=== PATIENT | female | born 1990 | race Caucasian/White ===

== ENCOUNTER → 2018-04-23 | Outpatient (CLI) | payer MEDICAID ==
[~2018-04-23] MED LIST: FRS325T PO; PREN1TAB39 PO
--- NOTE | 2018-04-23 17:03 | Diagnostic Imaging Report ---
PROCEDURE: US OB single fetus <14 wks. TECHNIQUE: Multiple real-time grayscale images were obtained over the gravid uterus in various projections. INDICATION: Gestational age determination. FINDINGS: There is a single living intrauterine . Embryo crown-rump length is 1.9 cm which corresponds to a gestational age of 8 weeks and 4 days. heart beat was recorded at 172 beats per minute. The placenta appears to be forming anteriorly. Amniotic fluid volume appears normal. Neither ovary could be adequately located because of overlying bowel gas. IMPRESSION: Single living intrauterine estimated with gestational age of 8 weeks 4 days +/-6 days. Dictated by: Dictated on workstation # [id number]
== END ==
LOC: RAD 13:45
PROVIDERS: ATTEND Family Medicine
DX: Z34.81 Encounter for supervision of other normal pregnancy, first trimester (principal); Z3A.08 8 weeks gestation of pregnancy
CPT/HCPCS: 76801

== ENCOUNTER 2018-11-17 08:25 | Outpatient (CLI) | payer MEDICAID ==
[~2018-11-17] VITALS: Ht 165.1 cm; Wt 85.0 kg
[2018-11-17] MEDS ORDERED: PREN-8 PO (08:38)
[2018-11-17 08:39] VITALS: BP 126/80
== END 2018-11-17 10:59 | disposition home or self-care (01) ==
LOC: PREOP 08:25
PROVIDERS: ATTEND Obstetrics & Gynecology
DX: Z01.818 Encounter for other preprocedural examination (principal)
CPT/HCPCS: 87081

== ENCOUNTER 2018-11-23 06:00 | Inpatient (IN) | payer MEDICAID ==
[~2018-11-23] VITALS: Ht 165.1 cm; Wt 85.0 kg
[~2018-11-23 06:00] MED LIST changes: +CITRIC ACID/SOB CIT (BICITRA) 30 ML UDC ONE; +FAMOTIDINE 20MG/2ML IV (PEPCID) ONE; +LACTATED RINGERS 1,000 ML IV ONE; +METOCLOPRAMIDE INJ 10 MG/2 ML (REGLAN) ONE; +PREN-8 PO; +ceFAZolin 2 GM IV Premixed 50 ML ONE
[2018-11-23] MEDS ORDERED: ceFAZolin 2 GM IV Premixed 50 ML IV ONE ×2 (06:30→07:30)
--- OUTSIDE RECORDS SUMMARY | 2018-11-23 06:30 | XMS REPORT ---
Author Author DHARMESH MILIAN Organization [facility] Address [address] [place] [address] Care Team Providers Care Flat Polisher Name Role Phone DHARMESH MILIAN Unavailable PROBLEMS Type Condition ICD9-CM Code [id number] Code Onset Dates Condition Status SNOMED Code Problem Previous section complicating O34.219 Active 193122050 ALLERGIES No Information ENCOUNTERS Encounter Location Date Diagnosis [facility] [address], [place] [address] May, [facility] [address], [place] [address] Apr, Normal in multigravida Z34.80 ; care in first trimester Z34.91 ; 6 weeks gestation of Z3A.01 and Previous section complicating O34.219 [facility] [address] [address] Apr, [facility] [address], [place] [address] Mar, [facility] [address], [place] [address] Mar, Encounter for test, result unknown Z32.00 IMMUNIZATIONS No Known Immunizations SOCIAL HISTORY Never Assessed REASON FOR VISIT Waiting for call back PLAN OF CARE VITAL SIGNS MEDICATIONS Unknown Medications RESULTS No Results PROCEDURES No Known procedures INSTRUCTIONS MEDICATIONS ADMINISTERED No Known Medications MEDICAL (GENERAL) HISTORY Type Description Date Surgical History 2 c - sections Hospitalization History child
--- OUTSIDE RECORDS SUMMARY | 2018-11-23 06:30 | XMS REPORT ---
Author Author SAL PRESTON Organization [facility] Address [address] [place] [address] Care Team Providers Care Watch Inspector Name Role Phone SAL PRESTON Unavailable PROBLEMS Type Condition ICD9-CM Code HWD12-AY Code Onset Dates Condition Status SNOMED Code Problem Previous section complicating O34.219 Active 572601060 ALLERGIES No Known Allergies ENCOUNTERS Encounter Location Date Diagnosis [facility] [address] [address] May, [facility] [address] [address] 10 Apr, 2018 Normal in multigravida Z34.80 ; care in first trimester Z34.91 ; 6 weeks gestation of Z3A.01 and Previous section complicating O34.219 [facility] [address] [address] Apr, [facility] [address] [address] Mar, [facility] [address] [address] Mar, Encounter for test, result unknown Z32.00 IMMUNIZATIONS No Known Immunizations SOCIAL HISTORY Never Assessed REASON FOR VISIT OB Flowsheet History PLAN OF CARE VITAL SIGNS MEDICATIONS Unknown Medications RESULTS No Results PROCEDURES No Known procedures INSTRUCTIONS MEDICATIONS ADMINISTERED No Known Medications MEDICAL (GENERAL) HISTORY Type Description Date Surgical History 2 c - sections Hospitalization History child
--- OUTSIDE RECORDS SUMMARY | 2018-11-23 06:30 | XMS REPORT ---
Author Author SAL PRESTON Organization [facility] Address [address] [place] [address] Care Team Providers Care Wet Suit Gluer Name Role Phone SAL PRESTON Unavailable PROBLEMS Type Condition ICD9-CM Code VIQ51-VN Code Onset Dates Condition Status SNOMED Code Problem Previous section complicating O34.219 Active 325478425 ALLERGIES No Information ENCOUNTERS Encounter Location Date Diagnosis [facility] [address] [place] [address] May, [facility] [address] [address] 10 Apr, 2018 Normal in multigravida Z34.80 ; care in first trimester Z34.91 ; 6 weeks gestation of Z3A.01 and Previous section complicating O34.219 [facility] [address] [address] Apr, [facility] [address] [address] Mar, [facility] [address] [address] Mar, Encounter for test, result unknown Z32.00 IMMUNIZATIONS No Known Immunizations SOCIAL HISTORY Never Assessed REASON FOR VISIT test (walk-in) PLAN OF CARE VITAL SIGNS MEDICATIONS Unknown Medications RESULTS Name Result Date Reference Range TEST, URINE (IN HOUSE) 2018-03-31 RESULTS Positive Lot # [id number] Control + Exp date 08/2019 PROCEDURES Procedure Date Ordered Result Body Site URINE TEST Mar 31, 2018 INSTRUCTIONS MEDICATIONS ADMINISTERED No Known Medications MEDICAL (GENERAL) HISTORY Type Description Date Surgical History 2 c - sections Hospitalization History child
--- OUTSIDE RECORDS SUMMARY | 2018-11-23 06:30 | XMS REPORT ---
Author Author DHARMESH MILIAN Organization [facility] Address [address] [place] [address] Care Team Providers Care Medicine Teacher Name Role Phone DHARMESH MILIAN Unavailable PROBLEMS Type Condition ICD9-CM Code NPC95-RK Code Onset Dates Condition Status SNOMED Code Problem Previous section complicating O34.219 Active 789183659 ALLERGIES Substance Reaction Event Type Date Status Percocet rash Drug Allergy Apr, Active ENCOUNTERS Encounter Location Date Diagnosis [facility] [address], [place] [address] May, [facility] [address] [place] [address] Apr, Normal in multigravida Z34.80 ; care in first trimester Z34.91 ; 6 weeks gestation of Z3A.01 and Previous section complicating O34.219 [facility] [address] [address] Apr, [facility] [address], [place] [address] Mar, [facility] [address] [place] [address] Mar, Encounter for test, result unknown Z32.00 IMMUNIZATIONS No Known Immunizations SOCIAL HISTORY Never Assessed REASON FOR VISIT OB-intake -- nori aden PLAN OF CARE Activity Details Follow Up 4 Weeks Reason: Pending Test GC/CHLAM PROBE (STATE) Pending Test SYPHILIS (STATE) Pending Test HIV (STATE) Pending Test HEP B SURFACE ANTIGEN (STATE) Pending Test CBC Pending Test BLOOD TPYE/RH FACTOR Pending Test ANTIBODY SCREEN Pending Test TSH Pending Test RUBELLA IMMUNE STATUS Pending Test CULTURE, GENITAL VITAL SIGNS Height 5'6" in 2018-04-13 Weight 156.0 lbs 2018-04-13 Temperature 98.0 degrees Fahrenheit 2018-04-13 BMI 25.18 kg/m2 2018-04-13 Blood pressure systolic 118 mmHg 2018-04-13 Blood pressure diastolic 70 mmHg 2018-04-13 MEDICATIONS Medication Instructions Dosage Frequency Start Date End Date Duration Status 28-0.8 MG Orally daily 1 24h Apr, Active Vitamins - (Dis) as directed Active 28-0.8 MG Orally daily 1 24h Apr, Active RESULTS No Results PROCEDURES Procedure Date Ordered Result Body Site URINALYSIS, AUTO, W/O SCOPE Apr 13, 2018 [facility] Apr 13, 2018 SPECIMEN HANDLING Apr 13, 2018 No Charge Apr 13, 2018 VENIPUNCT, ROUTINE* Apr 13, 2018 Bacterial Vaginosis In House Apr 13, 2018 INSTRUCTIONS MEDICATIONS ADMINISTERED No Known Medications MEDICAL (GENERAL) HISTORY Type Description Date Surgical History 2 c - sections Hospitalization History child
[2018-11-23] MEDS ORDERED: LACTATED RINGERS 1,000 ML IV SCH (06:31)
--- OUTSIDE RECORDS SUMMARY | 2018-11-23 06:31 | XMS REPORT ---
Author Author DHARMESH MILIAN Organization [facility] Address [address] [place] [address] Care Team Providers Care Compensation And Benefits Advisor Name Role Phone DHARMESH MILIAN Unavailable PROBLEMS Type Condition ICD9-CM Code KHE95-QQ Code Onset Dates Condition Status SNOMED Code Problem Previous section complicating O34.219 Active 181376869 ALLERGIES No Information ENCOUNTERS Encounter Location Date Diagnosis [facility] [id number] [place] [address] Jun, [place] [id number] [place] [address] May, care in first trimester Z34.91 ; 10 weeks gestation of Z3A.10 and Previous section complicating O34.219 [facility] [id number] [place] [address] 10 Apr, 2018 Normal in multigravida Z34.80 ; care in first trimester Z34.91 ; 6 weeks gestation of Z3A.01 and Previous section complicating O34.219 [place] [id number] [place] [address] Apr, [place] [id number] [place] [address] Mar, [place] [id number] [place] [address] Mar, Encounter for test, result unknown Z32.00 [facility] [id number] [id number] Apr, 2017 Wasp sting, accidental or unintentional, initial encounter T63.461A [facility] [id number] [place] [address] [id number] Mar, control counseling Z30.09 and BCP ( control pills) initiation Z30.011 [facility] [id number] [place] [address] [id number] Feb, Encounter for initial prescription of contraceptive pills Z30.011 [facility] [id number] [place] [address] [id number] Oct, Encounter for initial prescription of contraceptive pills Z30.011 [facility] [id number] [place] [address] [id number] Sep, [facility] [id number] [place] [address] [id number] Jul, Encounter for initial prescription of contraceptive pills Z30.011 [facility] [id number] [place] [address] May, Dental caries K02.9 [facility] [id number] [place] [address] May, Dental examination Z01.20 [facility] [id number] [place] [address] [phone] May, Encounter for initial prescription of contraceptive pills Z30.011 [address] [id number] [place] [address] [id number] Apr, Dental abscess K04.7 [address] [id number] [place] [address] [id number] Jan, Encounter for initial prescription of contraceptive pills Z30.011 and Abnormal weight loss R63.4 [facility] [id number] [place] [address] [id number] Oct, Encounter for Depo-Provera contraception Z30.42 [address] [id number] [place] [address] [id number] Jul, Encounter for Depo-Provera contraception Z30.42 [facility] [id number] [place] [address] [id number] May, Encounter for Depo-Provera contraception Z30.42 [facility] [id number] [place] [address] [phone] Apr, Poison claude 692.6 [facility] [address] [id number] [id number] Feb, Encounter for contraceptive management V25.9 [facility] [address], [place] [address] Nov, [facility] [address], [place] [address] Aug, [facility] [address] [place] [address]- [address] Aug, [facility] [id number] [place] [address]- [address] Aug, [facility] [address], [place] [address] Aug, [facility] [id number][place] [id number] Aug, [facility] [address], [place] [address] Aug, [facility] [id number] [id number] May, [facility] [address], [place] [address] May, [facility] [address] [id number] [id number] Feb, [facility] [address], [place] [address] Feb, [facility] [id number] [address] Nov, [facility] [address] [id number] [id number] Nov, [facility] [address] [id number][place] [id number] Sep, [facility] [address], [place] [address] Sep, [facility] [address] [id number] [place] [id number] Jun, [facility] [address], [place] [address] Jun, [facility] [address] [id number] [place] [id number] Mar, [facility] [address] [id number] [place] [id number] December, [facility] [address] [id number] [place] [id number] Oct, [facility] [address] [id number] [place] [id number] Jul, [facility] [address], [place] [address] Jul, [facility] [address] [id number] [id number] Jul, [facility] [address], [place] [address] Jul, [facility] [address] [id number][place] [id number] Apr, [facility] [address] [id number][place] [id number] Jan, [facility] [address] [id number][place] [id number] Oct, [facility] [address] [id number][place] [id number] Sep, [facility] [address] [facility] [id number], [place] [address] Sep, [facility] [address] [id number] [place] [id number] Sep, [facility] [address] [id number][place] [id number] Sep, [facility] [address] [id number][place] [id number] Sep, [facility] [address] [id number] [place] [id number] 15 Sep, 2011 [facility] [address] [id number] [place] [address]- [address] 27 Jul, 2011 [facility] [address] [id number] [place] [address]- [address] 13 Apr, 2011 [facility] [address] [id number] [place] [address]- [address] Mar, [facility] [address] [id number] [place] [address]- [address] 20 Jan, 2011 [facility] [address] [id number] [place] [address]- [address] 14 Jan, 2011 [facility] [address] [id number] [place] [address]- [address] Jan, [facility] [address] [id number] [place] [address]- [address] December, [facility] [address] [id number] [place] [address]- [address] 16 Sep, 2010 [facility] [address] [id number] [place] [address]- 1602 Aug, [facility] [address] [id number] [place] [address]- [address] Jul, [facility] [address] [id number] [place] [address]- [address] Jul, [facility] [address] [id number] [place] [address]- [address]77 Jul, [facility] [address] [id number] [place] [address] Jul, [facility] [address] [id number] [place] Jul, [facility] [address] [id number] [place] [address]- [address] Jul, [facility] [address] [facility] [id number], [place] [address] Jun, [facility] [address] [facility] [id number], [place] [address] Jun, [facility] [address] [facility] [id number] [address] Jun, [facility] [address] [facility] [id number], [place] [address] May, IMMUNIZATIONS No Known Immunizations SOCIAL HISTORY Never Assessed REASON FOR VISIT OB f/u-awoods PLAN OF CARE Activity Details Follow Up 4 Weeks Reason: VITAL SIGNS Height 5'6" in 2018-05-11 Weight 158.2 lbs 2018-05-11 Temperature 98.1 degrees Fahrenheit 2018-05-11 Heart Rate 90 bpm 2018-05-11 Respiratory Rate 20 2018-05-11 BMI 25.53 kg/m2 2018-05-11 Blood pressure systolic 124 mmHg 2018-05-11 Blood pressure diastolic 72 mmHg 2018-05-11 MEDICATIONS Medication Instructions Dosage Frequency Start Date End Date Duration Status 28-0.8 MG Orally daily 1 24h 10 Apr, 2018 Active RESULTS Name Result Date Reference Range UA OB DIP (IN HOUSE) 2018-05-11 Glucose neg Protein neg PROCEDURES Procedure Date Ordered Result Body Site URINE-NO MICRO May 11, 2018 INSTRUCTIONS MEDICATIONS ADMINISTERED No Known Medications MEDICAL (GENERAL) HISTORY Type Description Date Surgical History 2 c - sections Hospitalization History child
--- OUTSIDE RECORDS SUMMARY | 2018-11-23 06:31 | XMS REPORT ---
Author Author Migration, Doctor Organization [facility] Address Unknown Phone Unavailable Care Team Providers Care Clinical Laboratory Medical Director Name Role Phone Migration, Doctor Unavailable Unavailable PROBLEMS Type Condition ICD9-CM Code QXT40-UC Code Onset Dates Condition Status SNOMED Code Problem Migraine without aura and without status migrainosus, not intractable G43.009 Active 057530309 Problem Gastroesophageal reflux disease without esophagitis K21.9 Active 377565705 Problem Previous section complicating O34.219 Active 167841114 ALLERGIES No Information ENCOUNTERS Encounter Location Date Diagnosis [place] [address] [address] Nov, [place] [address] 75188- 5939 Oct, Third trimester Z34.93 ; 34 weeks gestation of Z3A.34 and Decreased movements in third trimester, single or unspecified fetus O36.8130 [place] [address] 14462- 8990 05 Oct, 2018 care in third trimester Z34.93 ; 31 weeks gestation of Z3A.31 ; Encounter for immunization Z23 and Previous section complicating O34.219 [place] [address] 27631- 8518 12 Sep, 2018 Third trimester Z34.93 ; 28 weeks gestation of Z3A.28 and Previous section complicating O34.219 [place] [address] 14236- 3879 06 Sep, 2018 Unspecified blood type, Rh negative Z67.91 [place] [address] [place] [id number] [place] [address] 70855- 3902 Aug, Second trimester Z34.92 ; 27 weeks gestation of Z3A.27 ; Unspecified blood type, Rh negative Z67.91 ; Other specified related conditions, second trimester O26.892 and Previous section complicating O34.219 [place] [address] [place] [id number] [place] [address] 11212- 2953 Aug, care in second trimester Z34.92 ; 23 weeks gestation of Z3A.23 ; Gastroesophageal reflux disease without esophagitis K21.9 and Diseases of the digestive system complicating , second trimester O99.612 [place] [address] [place] [id number] [place] [address] 51151- 9124 Jul, 19 weeks gestation of Z3A.19 and Second trimester Z34.92 [place] [address] [place] [id number] [place] [address] 83508- 4263 Jun, 15 weeks gestation of Z3A.15 ; Second trimester Z34.92 and Migraine without aura and without status migrainosus, not intractable G43.009 [place] [address] [place] [id number] [place] [address] 69805- 1119 May, [place] [address] [place] [id number] [place] [address] 96497- 2344 May, care in first trimester Z34.91 ; 10 weeks gestation of Z3A.10 and Previous section complicating O34.219 [place] [address] [place] [id number] [place] [address] 69281- 4923 Apr, Normal in multigravida Z34.80 ; care in first trimester Z34.91 ; 6 weeks gestation of Z3A.01 and Previous section complicating O34.219 [place] [address] [place] [id number] [place] [address] 23822- 1257 Apr, [place] [address] [place] [id number] [place] [address] 42922- 7836 Mar, [place] [address] [place] [id number] [place] [address] 83184- 6953 Mar, Encounter for test, result unknown Z32.00 [facility] [address] [place] [id number] [place] [address] [id number] Apr, Wasp sting, accidental or unintentional, initial encounter T63.461A [facility] [address] [place] [id number] [place] [address] [id number] 15 Mar, 2017 control counseling Z30.09 and BCP ( control pills) initiation Z30.[address] [id number] Feb, Encounter for initial prescription of contraceptive pills Z30.[address] [id number] Oct, Encounter for initial prescription of contraceptive pills Z30.011 [place] [id number] [place] [address] [id number] Sep, [address] [id number] Jul, Encounter for initial prescription of contraceptive pills Z30.011 [place] [address] 58033- 2546 May, Dental caries K02.9 [place] [address] 45575- 2542 05 May, 2016 Dental examination Z01.20 [place] [id number] [place] [address] [id number] May, Encounter for initial prescription of contraceptive pills Z30.011 [place] [id number] [place] [address] [id number] Apr, Dental abscess K04.7 [place] [id number] [place] [address] [id number] Jan, Encounter for initial prescription of contraceptive pills Z30.011 and Abnormal weight loss R63.[address] [id number] Oct, Encounter for Depo-Provera contraception Z30.42 [place] [id number] [place] [address] [id number] Jul, Encounter for Depo-Provera contraception Z30.42 [facility] [address] [facility] [id number][place] [id number] May, Encounter for Depo-Provera contraception Z30.42 [facility] [address] [facility] [id number][place] [id number] Apr, Poison claude 692.6 [facility] [id number], [place] [id number] Feb, Encounter for contraceptive management V25.9 [facility] [address]00565[address], [place] [address]- 2546 Nov, [facility] [address] [place] [id number] [place] [address] 34835- 1586 Aug, [facility] [address] [place] [id number] [place] [address] 25680- 3696 Aug, [facility] [address] [place] [id number] [place] [address] 26152- 2596 Aug, [facility] [address]65[address], [place] [address]- 8786 Aug, [facility] [id number][place] [id number] Aug, [facility] [address]65100[place], [place] [address]- 4496 Aug, [facility] [id number], [place] [id number] May, [facility] [address]65[address], [place] [address]- 2546 May, [facility] [id number], [place] [id number] Feb, [facility] [address], [place] [address]- 2546 Feb, [facility] [address]65[address], [place] [address]- 2546 Nov, [facility] [id number] [place] [id number] Nov, [facility] [address] [id number] [place] [id number] Sep, [facility] [place] [facility] [address] [facility] [id number], [place] [address]- 4436 Sep, [facility] [address] [facility] [id number] [place] [id number] Jun, [facility] [address], [place] [address]- 9486 Jun, [facility] [address] [id number] [place] [id number] Mar, [facility] [address] [id number] [place] [id number] December, [facility] [address] [id number] [place] [id number] Oct, [facility] [address] [id number] [place] [id number] Jul, [facility] [address]65100[place], [place] [address]- 2183 Jul, [facility] [address] [id number] [place] [id number] Jul, [facility] [address], [place] [address]- 0006 Jul, [facility] [address] [id number][place] [id number] Apr, [facility] [address] [id number][place] [id number] Jan, [facility] [address] [id number] [place] [id number] Oct, [facility] [address] [id number] [place] [id number] Sep, [facility] [place] [facility] [address] [facility] [id number], [place] [address]- 9608 Sep, [facility] [address] [facility] [id number], [place] [id number] Sep, [facility] [address] [id number] [place] [id number] Sep, [facility] [address] [id number] [place] [id number] Sep, [facility] [address] [id number] [place] [id number] 15 Sep, 2011 [facility] [address] [id number] [place] [address]- 2546 Jul, [facility] [address] [id number] [place] [address]- 2546 Apr, [facility] [address] [id number] [place] [address]- 1296 Mar, [facility] [address] [facility] [id number] [place] [address]- 5416 Jan, [facility] [address] [place] [id number] [address]- 7547 Jan, [facility] [address] [id number] [place] [address]- 5221 Jan, [facility] [address] [place] [id number] [address]- 1664 December, [facility] [address] [place] [id number] [address]- 3066 16 Sep, 2010 [facility] [address] [facility] [id number] [place] [address]- 3064 Aug, [facility] [place] [facility] [address] [id number], [place] [address]- 0221 Jul, [facility] [place] [facility] [address] [id number] [place] [address]- 1576 Jul, [facility] [place] [facility] [address] [facility] [id number] [place] [address]- 6176 Jul, [facility] [place] [facility] [address] [facility] [id number] [place] [address]- 6653 Jul, [facility] [address] [place] [address] [id number], [place] [address]- 3550 Jul, [facility] [address]65[address], [place] [address]- 7767 Jul, [facility] [address], [place] [address]- 2868 Jun, [facility] [address], [place] [address]- 2327 Jun, [facility] [address]65[address], [place] [address]- 8969 Jun, [facility] [address]65[address], [place] [address]- 6413 May, IMMUNIZATIONS No Known Immunizations SOCIAL HISTORY Never Assessed REASON FOR VISIT EMR-[facility] [place] PLAN OF CARE VITAL SIGNS MEDICATIONS Unknown Medications RESULTS No Results PROCEDURES No Known procedures INSTRUCTIONS MEDICATIONS ADMINISTERED No Known Medications MEDICAL (GENERAL) HISTORY Type Description Date Surgical History 2 c - sections Hospitalization History child
--- OUTSIDE RECORDS SUMMARY | 2018-11-23 06:31 | XMS REPORT ---
Author Author Migration, Doctor Organization [facility] Address Unknown Phone Unavailable Care Team Providers Care Director Of Special Services Name Role Phone Migration, Doctor Unavailable Unavailable PROBLEMS Type Condition ICD9-CM Code LIJ84-CN Code Onset Dates Condition Status SNOMED Code Problem Migraine without aura and without status migrainosus, not intractable G43.009 Active 115170889 Problem Gastroesophageal reflux disease without esophagitis K21.9 Active 830401666 Problem Previous section complicating O34.219 Active 606948459 ALLERGIES No Information ENCOUNTERS Encounter Location Date Diagnosis [place] [address] [place] [id number] [place] [address] 43546- 9467 Nov, [place] [address] [place] [id number] [place] [address] 58257- 2109 Nov, Third trimester Z34.93 ; 36 weeks gestation of Z3A.36 and Previous section complicating O34.219 [place] [address] [place] [id number] [place] [address] 98730- 3925 02 Nov, 2018 Third trimester Z34.93 and 35 weeks gestation of Z3A.35 [place] [address] [place] [id number] [place] [address] 27105- 7195 Oct, Third trimester Z34.93 ; 34 weeks gestation of Z3A.34 and Decreased movements in third trimester, single or unspecified fetus O36.8130 [place] [address] [place] [address] 00515- 9163 Oct, care in third trimester Z34.93 ; 31 weeks gestation of Z3A.31 ; Encounter for immunization Z23 and Previous section complicating O34.219 [facility] [address] [place] [id number] [place] [address] 27975- 5643 Sep, Third trimester Z34.93 ; 28 weeks gestation of Z3A.28 and Previous section complicating O34.219 [place] [address] [place] [id number] [place] [address] 57736- 5729 Sep, Unspecified blood type, Rh negative Z67.91 [place] [address] [place] [id number] [place] [address] 68383- 7612 Aug, Second trimester Z34.92 ; 27 weeks gestation of Z3A.27 ; Unspecified blood type, Rh negative Z67.91 ; Other specified related conditions, second trimester O26.892 and Previous section complicating O34.219 [place] [address] [place] [id number] [place] [address] 27039- 5534 Aug, care in second trimester Z34.92 ; 23 weeks gestation of Z3A.23 ; Gastroesophageal reflux disease without esophagitis K21.9 and Diseases of the digestive system complicating , second trimester O99.612 [place] [address] [place] [id number] [place] [address] 59125- 7033 Jul, 19 weeks gestation of Z3A.19 and Second trimester Z34.92 [place] [address] [place] [id number] [place] [address] 29683- 9379 Jun, 15 weeks gestation of Z3A.15 ; Second trimester Z34.92 and Migraine without aura and without status migrainosus, not intractable G43.009 [place] [address] [place] [id number] [place] [address] 50516- 3690 May, [place] [address] [place] [id number] [place] [address] 81818- 1717 May, care in first trimester Z34.91 ; 10 weeks gestation of Z3A.10 and Previous section complicating O34.219 [place] [address] [place] [address] 04328- 6755 Apr, Normal in multigravida Z34.80 ; care in first trimester Z34.91 ; 6 weeks gestation of Z3A.01 and Previous section complicating O34.219 [place] [address] [place] [id number] [place] [address] 66736999- 2287 Apr, [place] [address] [place] [id number] [place] [address] [id number]- 0116 Mar, [place] [address] 06256- 0091 Mar, Encounter for test, result unknown Z32.00 [facility] [address] [id number] Apr, 2017 Wasp sting, accidental or unintentional, initial encounter T63.461A [address] [id number] 15 Mar, 2017 control counseling Z30.09 and BCP ( control pills) initiation Z30.[address] [id number] Feb, Encounter for initial prescription of contraceptive pills Z30.011 [facility] [id number] [place] [address] [id number] Oct, Encounter for initial prescription of contraceptive pills Z30.011 [facility] [address] [place] [id number] [place] [address] [id number] Sep, [address] [id number] Jul, Encounter for initial prescription of contraceptive pills Z30.011 [place] [address] [place] [id number] [place] [address] 059798- 9926 May, Dental caries K02.9 [place] [address] [place] [id number] [place] [address] 81141- 9530 May, Dental examination Z01.[address] [id number] May, Encounter for initial prescription of contraceptive pills Z30.011 [facility] [id number] [place] [address] [id number] Apr, Dental abscess K04.[address] [id number] [id number] 17 Jan, 2016 Encounter for initial prescription of contraceptive pills Z30.011 and Abnormal weight loss R63.4 [facility] [place] [id number] [place] [address] [id number] Oct, Encounter for Depo-Provera contraception Z30.42 [facility] [place] [id number] [place] [address] [id number] Jul, Encounter for Depo-Provera contraception Z30.42 [facility] [place] [id number] [place] [address] [id number] May, Encounter for Depo-Provera contraception Z30.42 [facility] [place] [id number] [place] [address] [id number] Apr, Poison claude 692.6 [facility] [place] [id number] [place] [address] [id number] 08 Feb, 2015 Encounter for contraceptive management V25.9 [facility] [address] [id number] [place] [address] 49822- 2946 Nov, [facility] [address] [place] [id number] [place] [address] 40736- 0726 Aug, [facility] [address] [place] [id number] [place] [address] 34368- 2840 Aug, [facility] [address] [place] [id number] [place] [address] 35933- 3646 Aug, [facility] [address] [place] [address] 32909- 7856 Aug, [facility] [place] [id number] [place] [address] [id number] Aug, [facility] [address] [id number] [place] [address] 41465- 5356 Aug, [facility] [place] [id number] [place] [address] [id number] 08 May, 2014 [facility] [id number] [place] [address] 57977 2546 May, [facility] [address] [id number] [place] [id number] Feb, [facility] [address] [facility] [id number] [place] [address]- 2546 Feb, [facility] [place] [facility] [address] [facility] [id number] [place] [address]- 2546 Nov, [facility] [address] [id number] [place] [id number] Nov, [facility] [address] [id number] [place] [id number] Sep, [facility] [address] [facility] [id number] [place] [address]- 2546 Sep, [facility] [address] [id number] [place] [id number] Jun, [facility] [address] [address]- 2546 Jun, [facility] [address] [id number] [place] [id number] Mar, [facility] [address] [id number] [place] [id number] December, [facility] [address] [id number] [place] [id number] Oct, [facility] [address] [id number] [place] [id number] Jul, [facility] [address] [facility] [id number] [place] [address]- 2546 Jul, [facility] [address] [id number] [place] [id number] Jul, [facility] [address] [facility] [id number] [place] [address]- 2546 Jul, [facility] [address] [id number] [place] [id number] Apr, [facility] [address] [id number] [place] [id number] Jan, [facility] [address] [id number] [place] [id number] Oct, [facility] [address] [id number] [place] [id number] Sep, [facility] [place] [facility] [address] [facility] [id number] [place] [address]- 2546 18 Sep, 2011 [facility] [address] [id number] [place] [id number] Sep, [facility] [address] [id number] [place] [id number] Sep, [facility] [address] [id number] [place] [id number] Sep, [facility] [address] [id number] [place] [id number] Sep, [facility] [place] [facility] [address]100[place] [address]- 7327 Jul, [facility] [place] [facility] [address] [address]- 8858 Apr, [facility] [place] [facility] [address]100[place] [address]- 4019 Mar, [facility] [place] [facility] [address] [address]- 3097 Jan, [facility] [place] [facility] [address]100[place] [address]- 5226 Jan, [facility] [place] [facility] [address]100[place] [address]- 3974 Jan, [facility] [place] [facility] [address] [place] [address] [id number] 0595 December, [facility] [place] [facility] [id number] [address]- 7525 16 Sep, 2010 [facility] [place] [facility] [address]65100[place] [address]- 5279 Aug, [facility] [place] [facility] [id number] [address]- 1875 27 Jul, 2010 [facility] [address]100[place] [address]- 7849 Jul, [facility] [address] [address]- 9819 Jul, [facility] [address]100[place] [address]- 1392 Jul, [facility] [address]65100[place] [address]- 1991 Jul, [facility] [address] [place] [address] 28375- 0341 Jul, [facility] [address] [address]- 7049 Jun, [facility] [address] [address]- 1864 Jun, [facility] [address] [address]- 5698 Jun, [facility] [address] [address]- 6290 May, IMMUNIZATIONS No Known Immunizations SOCIAL HISTORY Never Assessed REASON FOR VISIT EMR-[facility] [place] PLAN OF CARE VITAL SIGNS MEDICATIONS Unknown Medications RESULTS No Results PROCEDURES No Known procedures INSTRUCTIONS MEDICATIONS ADMINISTERED No Known Medications MEDICAL (GENERAL) HISTORY Type Description Date Surgical History 2 c - sections Hospitalization History child
--- OUTSIDE RECORDS SUMMARY | 2018-11-23 06:31 | XMS REPORT ---
Author Author Migration, Doctor Organization [facility] Address Unknown Phone Unavailable Care Team Providers Care Tapper Helper Name Role Phone Migration, Doctor Unavailable Unavailable PROBLEMS Type Condition ICD9-CM Code YTF67-AU Code Onset Dates Condition Status SNOMED Code Problem Migraine without aura and without status migrainosus, not intractable G43.009 Active 560756635 Problem Gastroesophageal reflux disease without esophagitis K21.9 Active 042965428 Problem Previous section complicating O34.219 Active 183957075 ALLERGIES No Information ENCOUNTERS Encounter Location Date Diagnosis [place] [id number] [place] [address] 35371- 7312 Nov, [place] [id number] [place] [address] 87347- 8076 Nov, [place] [id number] [place] [address] 08138- 6677 Oct, [place] [id number] [place] [address] 67457- 8661 Oct, care in third trimester Z34.93 ; 31 weeks gestation of Z3A.31 ; Encounter for immunization Z23 and Previous section complicating O34.219 [place] [id number] [place] [address] 45591- 2474 12 Sep, 2018 Third trimester Z34.93 ; 28 weeks gestation of Z3A.28 and Previous section complicating O34.219 [place] [id number] [place] [address] 49796- 5422 06 Sep, 2018 Unspecified blood type, Rh negative Z67.91 [place] [id number] [place] [address] 63383- 8474 Aug, Second trimester Z34.92 ; 27 weeks gestation of Z3A.27 ; Unspecified blood type, Rh negative Z67.91 ; Other specified related conditions, second trimester O26.892 and Previous section complicating O34.219 [place] [id number] [place] [address] 98571- 4474 Aug, care in second trimester Z34.92 ; 23 weeks gestation of Z3A.23 ; Gastroesophageal reflux disease without esophagitis K21.9 and Diseases of the digestive system complicating , second trimester O99.612 [place] [id number] [place] [address] 98187- 4683 Jul, 19 weeks gestation of Z3A.19 and Second trimester Z34.92 [place] [id number] [place] [address] 61722- 1180 Jun, 15 weeks gestation of Z3A.15 ; Second trimester Z34.92 and Migraine without aura and without status migrainosus, not intractable G43.009 [place] [id number] [place] [address] 61898- 1984 May, [place] [id number] [place] [address] 11149- 8850 May, care in first trimester Z34.91 ; 10 weeks gestation of Z3A.10 and Previous section complicating O34.219 [place] [id number] [place] [address] 07248- 0269 10 Apr, 2018 Normal in multigravida Z34.80 ; care in first trimester Z34.91 ; 6 weeks gestation of Z3A.01 and Previous section complicating O34.219 [place] [id number] [place] [address] 96600- 0368 Apr, [place] [address] 98108- 4503 Mar, [place] [id number] [place] [address] 64953- 2097 Mar, Encounter for test, result unknown Z32.00 [facility] [id number] [place] [address] [id number] 08 Apr, 2017 Wasp sting, accidental or unintentional, initial encounter T63.461A [place] [id number] [place] [address] [id number] 15 Mar, 2017 control counseling Z30.09 and BCP ( control pills) initiation Z30.011 [place] [id number] [place] [address] [phone] Feb, Encounter for initial prescription of contraceptive pills Z30.011 [place] [id number] [place] [address] [phone] Oct, Encounter for initial prescription of contraceptive pills Z30.011 [place] [id number] [place] [address] [phone] Sep, [place] [id number] [place] [address] [id number] Jul, Encounter for initial prescription of contraceptive pills Z30.011 [place] [address] 51880- 2546 May, Dental caries K02.9 [place] [address] 50122- 2541 May, Dental examination Z01.20 [place] [id number] [place] [address] [id number] May, Encounter for initial prescription of contraceptive pills Z30.011 [address] [place] [address] [phone] Apr, Dental abscess K04.7 [place] [id number] [place] [address] [phone] Jan, Encounter for initial prescription of contraceptive pills Z30.011 and Abnormal weight loss R63.4 [place] [id number] [place] [address] [id number] Oct, Encounter for Depo-Provera contraception Z30.[address] [place] [address] [phone] Jul, Encounter for Depo-Provera contraception Z30.42 [facility] [address] [facility] [id number][place] [phone] May, Encounter for Depo-Provera contraception Z30.42 [facility] [address] [facility] [id number][place] [phone] Apr, Poison claude 692.6 [facility] [id number][place] [id number] Feb, Encounter for contraceptive management V25.9 [facility] [address]00565100[place] [address]- 4144 Nov, [facility] [id number] [place] [address] 98595- 3807 Aug, [facility] [id number] [place] [address] 63227- 8510 Aug, [facility] [id number] [place] [address] 09527- 7373 Aug, [facility] [address]00565100[place] [address]- 1017 Aug, [facility] [id number], [place] [id number] Aug, [facility] [address]65[address]- 6046 Aug, [facility] [address] [id number][place] [id number] May, [facility] [address]65100[place] [address]- 4196 May, [facility] [address] [id number][place] [id number] Feb, [facility] [address] [place] [address] 77144- 5936 Feb, [facility] [address]65100[place] [address]- 1300 Nov, [facility] [id number] [place] [address] [phone] Nov, [facility] [address] [id number] [place] [id number] Sep, [facility] [address] [facility] [id number] [address]- 2546 Sep, [facility] [address] [id number] [place] [id number] Jun, [facility] [address]65[address] [address]- 2774 Jun, [facility] [address] [id number] [place] [id number] Mar, [facility] [address] [id number] [place] [id number] December, [facility] [address] [id number] [place] [id number] Oct, [facility] [address] [id number] [place] [id number] Jul, [facility] [address] [address]- 3446 Jul, [facility] [address] [id number] [place] [id number] Jul, [facility] [address] [address]- 2546 Jul, [facility] [address] [id number], [place] [phone] Apr, [facility] [address] [id number], [place] [phone] Jan, [facility] [address] [id number] [place] [id number] Oct, [facility] [address] [id number] [place] [id number] Sep, [facility] [address] [facility] [id number] [place] [address]- 8316 Sep, [facility] [address] [facility] [id number], [place] [id number] Sep, [facility] [address] [id number] [place] [id number] Sep, [facility] [address] [id number] [place] [id number] Sep, [facility] [address] [facility] [id number] [place] [id number] 15 Sep, 2011 [facility] [address] [facility] [id number] [place] [address]- 6756 Jul, [facility] [address] [id number] [place] [address]- 9238 Apr, [facility] [address] [facility] [id number] [place] [address], [place] [address]- 8289 Mar, [facility] [address] [address]- 0192 Jan, [facility] [address] [place] [address] 70335- 4010 14 Jan, 2011 [facility] [address] [id number] [address]- 5331 Jan, [facility] [address] [address]- 6072 December, [facility] [address] [id number] [address]- 6502 16 Sep, 2010 [facility] [address] [address]- 7972 Aug, [facility] [address] [facility] [id number] [place] [address]- 1994 Jul, [facility] [address] [id number] [address]- 8264 Jul, [facility] [address] [facility] [id number] [place] [address]- 4907 Jul, [facility] [address]- 8484 Jul, [facility] [address] [id number] [address]- 5848 Jul, [facility] [address] [address]- 2069 Jul, [facility] [address] [id number] [address]- 3468 Jun, [facility] [address] [address]- 8992 Jun, [facility] [address] [id number] [address]- 1898 Jun, [facility] [address]- 2212 May, IMMUNIZATIONS No Known Immunizations SOCIAL HISTORY Never Assessed REASON FOR VISIT EMR-[facility] PLAN OF CARE VITAL SIGNS MEDICATIONS Unknown Medications RESULTS No Results PROCEDURES No Known procedures INSTRUCTIONS MEDICATIONS ADMINISTERED No Known Medications MEDICAL (GENERAL) HISTORY Type Description Date Surgical History 2 c - sections Hospitalization History child
--- OUTSIDE RECORDS SUMMARY | 2018-11-23 06:31 | XMS REPORT ---
Author Author DHARMESH MILIAN Organization [facility] Address [address] [place] [address] Care Team Providers Care General Foreman Name Role Phone DHARMESH MILIAN Unavailable PROBLEMS Type Condition ICD9-CM Code ZJY06-YG Code Onset Dates Condition Status SNOMED Code Problem Migraine without aura and without status migrainosus, not intractable G43.009 Active 215530174 Problem Previous section complicating O34.219 Active 105586931 ALLERGIES No Information ENCOUNTERS Encounter Location Date Diagnosis [place] [address] [place] [id number] [place] [address] 76867- 5593 Jul, [facility] [id number] [place] [address] 48616- 8480 Jun, 15 weeks gestation of Z3A.15 ; Second trimester Z34.92 and Migraine without aura and without status migrainosus, not intractable G43.009 [facility] [address] [place] [address] 54335- 0042 18 May, 2018 [place] [address] [place] [address] 34265- 9446 May, care in first trimester Z34.91 ; 10 weeks gestation of Z3A.10 and Previous section complicating O34.219 [facility] [address] [place] [address] 58298- 4804 10 Apr, 2018 Normal in multigravida Z34.80 ; care in first trimester Z34.91 ; 6 weeks gestation of Z3A.01 and Previous section complicating O34.219 [facility] [address]65100[place], [place] [address]- 4895 Apr, [place] [address] 10688- 6929 Mar, [place] [address] 01354- 7291 Mar, Encounter for test, result unknown Z32.00 [facility] [id number] [place] [address] [id number] 08 Apr, 2017 Wasp sting, accidental or unintentional, initial encounter T63.461A [facility] [address] [id number] 15 Mar, 2017 control counseling Z30.09 and BCP ( control pills) initiation Z30.[address] [id number] Feb, Encounter for initial prescription of contraceptive pills Z30.011 [place] [address] [id number] Oct, Encounter for initial prescription of contraceptive pills Z30.011 [facility] [address] [id number] Sep, [facility] [address] [id number] Jul, Encounter for initial prescription of contraceptive pills Z30.011 [place] [id number] [place] [address] 548400- 2595 May, Dental caries K02.9 [place] [address] 24826 2547 05 May, 2016 Dental examination Z01.20 [facility] [id number] [place] [address] [id number] May, Encounter for initial prescription of contraceptive pills Z30.011 [place] [address] [id number] Apr, Dental abscess K04.7 [facility] [address] [id number] Jan, Encounter for initial prescription of contraceptive pills Z30.011 and Abnormal weight loss R63.4 [facility] [address] [address] Oct, Encounter for Depo-Provera contraception Z30.42 [facility] [id number] [place] [address] Jul, Encounter for Depo-Provera contraception Z30.42 [facility] [address] [id number] [place] [id number] May, Encounter for Depo-Provera contraception Z30.42 [facility] [id number] [place] [address] [id number] Apr, Poison claude 692.6 [facility] [place] [place] [id number] [place] [address] [id number] Feb, Encounter for contraceptive management V25.9 [facility] [id number] [place] [address] 55183- 4886 Nov, [facility] [id number] [place] [address] 61911- 9436 Aug, [facility] [id number] [place] [address] 94546- 3047 Aug, [facility] [id number] [place] [address] 14678- 3758 Aug, [facility] [id number] [place] [address] 54038- 2437 Aug, [facility] [id number] [place] [id number] Aug, [facility] [id number] [place] [address] 25254- 3826 Aug, [facility] [id number] [id number] May, [facility] [id number] [place] [address] 89466- 2546 May, [facility] [address] [id number] [place] [id number] Feb, [facility] [id number] [place] [address] 58242- 2546 Feb, [facility] [address] [facility] [id number], [place] [address]- 2546 Nov, [facility] [address] [id number] [place] [id number] Nov, [facility] [address] [id number] [place] [id number] Sep, [facility] [address] [facility] [id number], [place] [address]- 2546 Sep, [facility] [address] [id number] [place] [id number] Jun, [facility] [address] [facility] [id number], [place] [address]- 2546 Jun, [facility] [address] [id number] [place] [id number] Mar, [facility] [address] [id number] [place] [id number] December, [facility] [address] [id number] [place] [id number] Oct, [facility] [address] [id number] [place] [id number] Jul, [facility] [address] [facility] [id number], [place] [address] 2546 Jul, [facility] [address] [id number] [place] [id number] Jul, [facility] [address] [facility] [id number], [place] [address]- 2546 Jul, [facility] [address] [id number] [place] [id number] Apr, [facility] [address] [id number] [place] [id number] Jan, [facility] [address] [id number] [place] [id number] Oct, [facility] [address] [id number] [place] [id number] Sep, [facility] [address] [facility] [id number], [place] [address]- 8806 18 Sep, 2011 [facility] [address] [facility] [id number] [place] [id number] Sep, [facility] [address] [facility] [id number] [place] [id number] Sep, [facility] [address] [id number] [place] [address]56[address]26 Sep, [facility] [address] [id number] [place] [id number] 15 Sep, 2011 [facility] [address], [place] [address]- 3798 Jul, [facility] [address]100[place], [place] [address]- 5026 Apr, [facility] [address]100[place], [place] [address]- 9092 Mar, [facility] [address], [place] [address]- 6775 Jan, [facility] [address], [place] [address]- 3549 Jan, [facility] [address], [place] [address]- 8656 Jan, [facility] [address], [place] [address]- 2574 December, [facility] [address] [id number], [place] [address]- 9552 Sep, [facility] [address], [place] [address]- 3820 Aug, [facility] [address], [place] [address]- 2770 Jul, [facility] [address], [place] [address]- 9464 Jul, [facility] [address]100[place], [place] [address]- 1173 Jul, [facility] [address] [address]- 6824 Jul, [facility] [address]100[place]- 4433 Jul, [facility] [address]100[place], [place] [address]- 5111 Jul, [facility] [address]- 8624 Jun, [facility] [address] [place] [address] 993545- 6796 Jun, [facility] [address]- 3873 Jun, [facility] [address]- 9150 May, IMMUNIZATIONS No Known Immunizations SOCIAL HISTORY Never Assessed REASON FOR VISIT OB f/u Padmini Restrepo MA, OB dip PLAN OF CARE Activity Details Follow Up 4 Weeks Reason: VITAL SIGNS Height 5'6" in 2018-06-10 Weight 154.5 lbs 2018-06-10 Temperature 97.7 degrees Fahrenheit 2018-06-10 Heart Rate 68 bpm 2018-06-10 Respiratory Rate 20 2018-06-10 BMI 24.93 kg/m2 2018-06-10 Blood pressure systolic 120 mmHg 2018-06-10 Blood pressure diastolic 64 mmHg 2018-06-10 MEDICATIONS Medication Instructions Dosage Frequency Start Date End Date Duration Status 28-0.8 MG Orally daily 1 24h Apr, Active Reglan 10 mg Orally daily 1 tab 24h May, 30 days Not-Taking RESULTS Name Result Date Reference Range UA OB DIP (IN HOUSE) 2018-06-10 Glucose negative Protein negative PROCEDURES Procedure Date Ordered Result Body Site URINE-NO MICRO Jun 10, 2018 INSTRUCTIONS MEDICATIONS ADMINISTERED No Known Medications MEDICAL (GENERAL) HISTORY Type Description Date Surgical History 2 c - sections Hospitalization History child
--- OUTSIDE RECORDS SUMMARY | 2018-11-23 06:32 | XMS REPORT ---
Author Author EFRAIN DAMIAN [facility] [employer] Address Unknown Phone Unavailable Care Team Providers Care Crisis Manager Name Role Phone EFRAIN DAMIAN Unavailable Allergies, Adverse Reactions, Alerts Substance Reaction Event Type N.K.D.A. Info Not Available Non Drug Allergy Problems Problem Type Condition ICD-9 Code Onset Dates Condition Status Problem Dyspareunia 625.0 Active Problem Screening for malignant neoplasm of the cervix V76.2 Active Problem Other general symptoms 780.99 Active Assessment Poison claude 692.6 Active Problem Unspecified contraceptive surveillance V25.40 Active Problem Unspecified contraceptive management V25.9 Active Medications Medication Code System Code Instructions Start Date End Date Status Dosage PredniSONE [facility] [address]-65 10 MG Orally Day 1-3:4 tabs qd, Day 4-6: 3 tab qd, Day 7-10: 2tab qd, Day 11-13: 1 tab qd, Day 14&15: 0.5 tab qd Apr 21, 2015 May 21, 2015 1 tablet with food or milk Triamcinolone Acetonide [facility] [address]-76 0.1 % Externally to groin Twice a day Apr 21, 2015 1 application to affected area Depo-Provera [facility] [address]-18 150 MG/ML Intramuscular 1 ml Erythromycin [facility] [address]-92 5 MG/GM Ophthalmic Twice a day Apr 21, 2015 1 application Procedures Procedure Coding System Code Date SOLUMEDROL (UP TO 125 MG) CPT-4 J2930 Apr 21, 2015 THER/PROPH/DIAG INJ, SC/IM CPT-4 50925 Apr 21, 2015 Office Visit, Est Pt., Level 3 CPT-4 23220 Apr 21, 2015 Vital Signs Date/Time: Apr 21, 2015 Temperature 99.3 F Weight 161.2 lbs Height 65 in BMI 26.82 Index Blood Pressure Diastolic 74 mmHg Blood Pressure Systolic 116 mmHg Cardiac Monitoring Heart Rate 88 bpm Results No Known Results Summary Purpose eClinicalWorks Submission
--- OUTSIDE RECORDS SUMMARY | 2018-11-23 06:32 | XMS REPORT ---
Author KIM Carty [facility] eClinicalWorks Address Unknown Phone Unavailable Care Team Providers Care Skip Miner Name Role Phone KIM MUNGUIA CP Unavailable Allergies, Adverse Reactions, Alerts Substance Reaction Event Type N.K.D.A. Info Not Available Non Drug Allergy Problems Problem Type Condition Code Onset Dates Condition Status Problem Dyspareunia 625.0 Active Problem Screening for malignant neoplasm of the cervix V76.2 Active Problem Other general symptoms 780.99 Active Assessment Dental caries K02.9 Active Problem Unspecified contraceptive surveillance V25.40 Active Problem Unspecified contraceptive management V25.9 Active Medications Medication Code System Code Instructions Start Date End Date Status Dosage Acetaminophen-Codeine #3 [facility] [address]-28 300-30 MG Orally 3 times a day Apr 25, 2016 1 tablet as needed Sprintec 28 [facility] [address]-24 0.25-35 MG-MCG Orally Once a day January 19, 2016 1 tablet Procedures Procedure Coding System Code Date EXTRAC ERUPTED TOOTH/EXPOSED ROOT CPT-4 D7140 May 13, 2016 Vital Signs Date/Time: May 13, 2016 Blood Pressure Diastolic 84 mmHg Blood Pressure Systolic 113 mmHg Height 65 in Results No Known Results Summary Purpose eClinicalWorks Submission
--- OUTSIDE RECORDS SUMMARY | 2018-11-23 06:32 | XMS REPORT ---
Author Author RAINE PEACE Organization e[employer] Address Unknown Phone Unavailable Care Team Providers Care Communications Equipment Operator Name Role Phone RAINE PEACE CP Unavailable Allergies, Adverse Reactions, Alerts Substance Reaction Event Type N.K.D.A. Info Not Available Non Drug Allergy Problems Problem Type Condition Code Onset Dates Condition Status Problem Dyspareunia 625.0 Active Problem Screening for malignant neoplasm of the cervix V76.2 Active Problem Other general symptoms 780.99 Active Assessment Dental abscess K04.7 Active Problem Unspecified contraceptive surveillance V25.40 Active Problem Unspecified contraceptive management V25.9 Active Medications Medication Code System Code Instructions Start Date End Date Status Dosage Sprintec 28 [facility] [address]-19 0.25-35 MG-MCG Orally Once a day January 19, 2016 1 tablet Clindamycin HCl [facility] [address]-98 300 MG Orally 2 times a day Apr 25, 2016 May 09, 2016 1 capsule Acetaminophen-Codeine #3 [facility] [address]-40 300-30 MG Orally 3 times a day Apr 25, 2016 1 tablet as needed Procedures Procedure Coding System Code Date Office Visit, Est Pt., Level 3 CPT-4 16576 Apr 25, 2016 Vital Signs Date/Time: Apr 25, 2016 Cardiac Monitoring Heart Rate 79 bpm Weight 134.6 lbs Height 65 in BMI 22.40 Index Blood Pressure Diastolic 80 mmHg Blood Pressure Systolic 120 mmHg Results No Known Results Summary Purpose eClinicalWorks Submission
--- OUTSIDE RECORDS SUMMARY | 2018-11-23 06:32 | XMS REPORT ---
Author Author EFRAIN DAMIAN [facility] e[employer] Address Unknown Phone Unavailable Care Team Providers Care Volunteer Recruiter Name Role Phone EFRAIN DAMIAN Unavailable Allergies, Adverse Reactions, Alerts Substance Reaction Event Type N.K.D.A. Info Not Available Non Drug Allergy Problems Problem Type Condition Code Onset Dates Condition Status Problem Dyspareunia 625.0 Active Problem Screening for malignant neoplasm of the cervix V76.2 Active Problem Other general symptoms 780.99 Active Assessment Encounter for initial prescription of contraceptive pills Z30.011 Active Assessment Abnormal weight loss R63.4 Active Problem Unspecified contraceptive surveillance V25.40 Active Problem Unspecified contraceptive management V25.9 Active Medications Medication Code System Code Instructions Start Date End Date Status Dosage Sprintec 28 [facility] [address]-83 0.25-35 MG-MCG Orally Once a day January 19, 2016 1 tablet Depo-Provera [facility] [address]-37 150 MG/ML Intramuscular 1 ml Procedures Procedure Coding System Code Date Preventive Care Est Pt. Age 18-39 CPT-4 44766 January 19, 2016 DRUG SCREEN NON TLC DEVICES CPT-4 67091 January 19, 2016 URINE TEST CPT-4 60391 January 19, 2016 Vital Signs Date/Time: January 19, 2016 Cardiac Monitoring Heart Rate 92 bpm Weight 128.6 lbs Height 65 in Blood Pressure Diastolic 64 mmHg Blood Pressure Systolic 100 mmHg Results No Known Results Summary Purpose eClinicalWorks Submission
--- OUTSIDE RECORDS SUMMARY | 2018-11-23 06:32 | XMS REPORT ---
Author KIM Carty [facility] eClinical[employer] Address Unknown Phone Unavailable Care Team Providers Care Student Development Specialist Name Role Phone KIM MUNGUIA CP Unavailable Allergies, Adverse Reactions, Alerts Substance Reaction Event Type N.K.D.A. Info Not Available Non Drug Allergy Problems Problem Type Condition Code Onset Dates Condition Status Problem Dyspareunia 625.0 Active Problem Screening for malignant neoplasm of the cervix V76.2 Active Problem Other general symptoms 780.99 Active Assessment Dental examination Z01.20 Active Problem Unspecified contraceptive surveillance V25.40 Active Problem Unspecified contraceptive management V25.9 Active Medications Medication Code System Code Instructions Start Date End Date Status Dosage Acetaminophen-Codeine #3 [facility] [address]-96 300-30 MG Orally 3 times a day Apr 25, 2016 1 tablet as needed [place] [facility] [address]-18 5-325 MG Orally every 6 hrs May 08, 2016 May 12, 2016 1 tablet as needed Sprintec 28 [facility] [address]-65 0.25-35 MG-MCG Orally Once a day January 19, 2016 1 tablet Amoxicillin [facility] [address]-21 500 MG Orally four times a day May 08, 2016 May 15, 2016 1 tablet Procedures Procedure Coding System Code Date INTRAORL-PERIAPICAL 1 FILM 32401 CPT-4 D0220 May 08, 2016 LTD ORAL EVALUATION - PROBLEM FOCUS CPT-4 D0140 May 08, 2016 Vital Signs Date/Time: May 08, 2016 Blood Pressure Diastolic 110 mmHg Blood Pressure Systolic 130 mmHg Height 65 in Results No Known Results Summary Purpose eClinicalWorks Submission
--- OUTSIDE RECORDS SUMMARY | 2018-11-23 06:32 | XMS REPORT ---
Author Author EFRAIN DAMIAN [facility] eClinicalWorks Address Unknown Phone Unavailable Care Team Providers Care Computer Numeric Control Setter Name Role Phone EFRAIN DAMIAN Unavailable Allergies No Known Allergies Problems Problem Type Condition Code Onset Dates Condition Status Problem Dyspareunia 625.0 Active Problem Screening for malignant neoplasm of the cervix V76.2 Active Problem Other general symptoms 780.99 Active Assessment Encounter for Depo-Provera contraception Z30.42 Active Problem Unspecified contraceptive surveillance V25.40 Active Problem Unspecified contraceptive management V25.9 Active Medications No Known Medications Procedures Procedure Coding System Code Date THER/PROPH/DIAG INJ, SC/IM CPT-4 42322 May 10, 2015 URINE TEST CPT-4 75397 May 10, 2015 DEPO PROVERA (150 MG/ML) CPT-4 J1050 May 10, 2015 Results Name Result Date Reference Range Unit Abnormality Flag TEST, URINE (IN HOUSE) Summary Purpose eClinicalWorks Submission
--- OUTSIDE RECORDS SUMMARY | 2018-11-23 06:32 | XMS REPORT ---
Author Author EFRAIN DAMIAN [facility] eClinicalWorks Address Unknown Phone Unavailable Care Team Providers Care Bus Aide Name Role Phone EFRAIN DAMIAN Unavailable Allergies No Known Allergies Problems Problem Type Condition Code Onset Dates Condition Status Problem Dyspareunia 625.0 Active Problem Screening for malignant neoplasm of the cervix V76.2 Active Problem Other general symptoms 780.99 Active Assessment Encounter for initial prescription of contraceptive pills Z30.011 Active Problem Unspecified contraceptive surveillance V25.40 Active Problem Unspecified contraceptive management V25.9 Active Medications Medication Code System Code Instructions Start Date End Date Status Dosage Sprintec 28 [facility] [address]-69 0.25-35 MG-MCG Orally Once a day January 19, 2016 1 tablet Results No Known Results Summary Purpose eClinicalWorks Submission
--- OUTSIDE RECORDS SUMMARY | 2018-11-23 06:32 | XMS REPORT ---
Author Author RAINE PEACE [facility] Address [address] [place] [address] Care Team Providers Care Architecture Manager Name Role Phone RAINE PEACE Unavailable PROBLEMS Type Condition ICD9-CM Code [id number] Code Onset Dates Condition Status SNOMED Code Problem Dyspareunia 625.0 Active 30009383 Problem Other general symptoms 780.99 Active 036614335 Problem Screening for malignant neoplasm of the cervix V76.2 Active 980265893 Problem Unspecified contraceptive surveillance V25.40 Active 957744958 Problem Unspecified contraceptive management V25.9 Active 062898975 ALLERGIES No Information SOCIAL HISTORY Never Assessed PLAN OF CARE VITAL SIGNS MEDICATIONS No Known Medications RESULTS No Results PROCEDURES No Known procedures IMMUNIZATIONS No Known Immunizations MEDICAL (GENERAL) HISTORY Type Description Date Surgical History section 2010 Hospitalization History childbirth
--- OUTSIDE RECORDS SUMMARY | 2018-11-23 06:32 | XMS REPORT ---
Author Author RAINE PEACE [facility] Address [address] [place] [address] Care Team Providers Care Traffic Routing Engineer Name Role Phone RAINE PEACE Unavailable PROBLEMS Type Condition ICD9-CM Code [id number] Code Onset Dates Condition Status SNOMED Code Problem Dyspareunia 625.0 Active 00003447 Problem Other general symptoms 780.99 Active 437232178 Problem Screening for malignant neoplasm of the cervix V76.2 Active 802769211 Problem Unspecified contraceptive surveillance V25.40 Active 657460911 Problem Unspecified contraceptive management V25.9 Active 974552149 ALLERGIES No Information SOCIAL HISTORY Never Assessed PLAN OF CARE VITAL SIGNS MEDICATIONS Medication Instructions Dosage Frequency Start Date End Date Duration Status Sprintec 28 0.25-35 MG-MCG Orally Once a day 1 tablet 24h Jan, 0 days Active RESULTS No Results PROCEDURES No Known procedures IMMUNIZATIONS No Known Immunizations MEDICAL (GENERAL) HISTORY Type Description Date Surgical History section 2010 Hospitalization History childbirth
--- OUTSIDE RECORDS SUMMARY | 2018-11-23 06:32 | XMS REPORT ---
Author Author EFRAIN DAMIAN [facility] Address [address] [place] [address] Care Team Providers Care Rn Tele Name Role Phone EFRAIN DAMIAN Unavailable PROBLEMS Type Condition ICD9-CM Code [id number] Code Onset Dates Condition Status SNOMED Code Problem Other general symptoms 780.99 Active 407977513 Problem Dyspareunia 625.0 Active 19044446 Problem Unspecified contraceptive management V25.9 Active 401191110 Problem Screening for malignant neoplasm of the cervix V76.2 Active 150977624 Problem Unspecified contraceptive surveillance V25.40 Active 961804912 ALLERGIES No Known Allergies SOCIAL HISTORY No smoking Hx information available PLAN OF CARE VITAL SIGNS MEDICATIONS Medication Instructions Dosage Frequency Start Date End Date Duration Status Sprintec 28 0.25-35 MG-MCG Orally Once a day 1 tablet 24h Jan, 0 days Active RESULTS No Results PROCEDURES No Known procedures IMMUNIZATIONS No Known Immunizations
--- OUTSIDE RECORDS SUMMARY | 2018-11-23 06:32 | XMS REPORT ---
Author Author EFRAIN DAMIAN [facility] eClinicalWorks Address Unknown Phone Unavailable Care Team Providers Care Director Case Name Role Phone EFRAIN DAMIAN Unavailable Allergies [...] Medications Procedures Procedure Coding System Code Date DEPO PROVERA (150 MG/ML) CPT-4 J1050 Jul 31, 2015 THER/PROPH/DIAG INJ, SC/IM CPT-4 40731 Jul 31, 2015 URINE TEST CPT-4 10338 Jul 31, 2015 Results No Known Results Summary Purpose eClinicalWorks Submission
--- OUTSIDE RECORDS SUMMARY | 2018-11-23 06:32 | XMS REPORT | Continuity of Care Document ---
Author Organization Unknown Address Unknown Allergies There is no data. Medications There is no data. Problems There is no data. Procedures There is no data. Results Test Result Range CULTURE, GROUP B STREP (VAGINAL) - 11/10/18 14:13 STREPTOCOCCUS, GROUP B CULTURE SEE NOTE NRG Encounters ACCT No. Visit Date/Time Discharge Status Pt. Type Provider Facility Loc./Unit Complaint [id number] 11/18/2018 13:20:00 11/18/2018 23:59:59 [facility] [id number] 11/10/2018 10:40:00 Document Registration
[2018-11-23 06:40] LABS: BASOPHILS % (AUTO) 0 % (0-10); EOSINOPHILS # (AUTO) 0.1 10^3/uL (0.0-0.3); EOSINOPHILS % (AUTO) 1 % (0-10); HEMATOCRIT 33 % (35-52); HEMOGLOBIN 10.7 G/DL (11.5-16.0); LYMPHOCYTES # (AUTO) 3.2 X 10^3 (1.0-4.0); LYMPHOCYTES % (AUTO) 31 % (12-44); MEAN CORPUSCULAR HEMOGLOBIN 28 PG (25-34); MEAN CORPUSCULAR HGB CONC 32 G/DL (32-36); MEAN CORPUSCULAR VOLUME 88 FL (80-99); MEAN PLATELET VOLUME 10.5 FL (7.4-10.4); MONOCYTES # (AUTO) 0.8 X 10^3 (0.0-1.0); MONOCYTES % (AUTO) 8 % (0-12); NEUTROPHILS % (AUTO) 59 % (42-75); PLATELET COUNT 227 10^3/uL (130-400); RED CELL DISTRIBUTION WIDTH 13.4 % (10.0-14.5); WHITE BLOOD COUNT 10.1 10^3/uL (4.3-11.0)
[2018-11-23] MEDS ORDERED: CITRIC ACID/SOB CIT (BICITRA) 30 ML UDC PO ONE (06:45)
[2018-11-23] MEDS ORDERED: FAMOTIDINE 20MG/2ML IV (PEPCID) IV ONE (06:45)
[2018-11-23] MEDS ORDERED: METOCLOPRAMIDE INJ 10 MG/2 ML (REGLAN) IV ONE (06:45)
[2018-11-23] MEDS ORDERED: fentaNYL INJECTION 100 MCG/2 ML AMP ONE (06:49)
[2018-11-23] MEDS ORDERED: OXYTOCIN/NORMAL SALINE 500 ML IV ONE ×2 (06:51→07:36)
[2018-11-23] MEDS ORDERED: OXYTOCIN/NORMAL SALINE 500 ML IV SCH (07:09)
--- NOTE | 2018-11-23 07:09 | History & Physical-OB ---
OB - Chief Complaint & HPI Date/Time Date of Admission: Date of Admission: Nov 23, 2018 at 06:00 Date seen by a Provider: Nov 23, 2018 Time Seen by a Provider: 07:04 Chief Complaint/History OB-Reason for Admission/Chief: Section Hx : 3 Hx Para: 2 Expected Date of Delivery: Nov 29, 2018 Gestational Age in Weeks: 39 Gestational Age in Days: 1 Indication for : desires repeat Admission Nurse Assessment Rev: Yes History of Labs A neg Antibody neg RI RPR NR HBsAg NR HIV NR GC neg GBS neg Allergies and Home Medications Allergies Coded Allergies: acetaminophen (Verified Allergy, Severe, MOUTH BLISTERS, 11/17/18) oxycodone (Verified Allergy, Severe, MOUTH BLISTERS, 11/17/18) Home Medications Vit W-Ca,Fe,FA(<1 mg) 1 Each Tablet, 1 EACH PO DAILY, (Reported) Patient Home Medication List Home Medication List Reviewed: Yes OB - History Hx of Present Care: Yes (with Dr. Serrano) Ultrasounds: Normal mid trimester US Obstetrical Complications: None Medical Complications: None Obstetrical History Hx Termination: No Hx Multiple Gestation: No Hx Stillbirth: No Hx Complication: No Hx Induced Hypertens: No Hx Maternal Gestational Diabet: No Delivery History Hx Dystocia: No Hx Large For Gestational Age I: No Hx Small for Gestational Age I: No Hx Section: Yes Hx Vaginal Delivery Post C-Sec: No Hx Blood Disorders: Yes Adverse Rxn to Tranfusion: No (N/A) Patient Past Medical History n/a Social History/Family History HIV/AIDS: No Sexually Transmitted Disease: No OB - Admission Exam Physical Exam HEENT: NCAT Heart: Rhythm Normal Lungs: Clear Abdomen: Gravid Extremities: Normal Reflexes: Normal Heart Rate: 130's Accelerations: Accelerations Present Decelerations: No Decelerations Short Term Variability: Present Automotive Service Technician Variability: Average (6-25) Contractions on Admission: 6-10 Minutes Apart Labs Laboratory Tests Test 11/23/18 06:15 Range/Units White Blood Count 10.1 4.3-11.0 10^3/uL Red Blood Count 3.78 L 4.35-5.85 10^6/uL Hemoglobin 10.7 L 11.5-16.0 G/DL Hematocrit 33 L 35-52 % Mean Corpuscular Volume 88 80-99 FL Mean Corpuscular Hemoglobin 28 25-34 PG Mean Corpuscular Hemoglobin Concent 32 32-36 G/DL Red Cell Distribution Width 13.4 10.0-14.5 % Platelet Count 227 130-400 10^3/uL Mean Platelet Volume 10.5 H 7.4-10.4 FL Neutrophils (%) (Auto) 59 42-75 % Lymphocytes (%) (Auto) 31 12-44 % Monocytes (%) (Auto) 8 0-12 % Eosinophils (%) (Auto) 1 0-10 % Basophils (%) (Auto) 0 0-10 % Neutrophils # (Auto) 6.0 1.8-7.8 X 10^3 Lymphocytes # (Auto) 3.2 1.0-4.0 X 10^3 Monocytes # (Auto) 0.8 0.0-1.0 X 10^3 Eosinophils # (Auto) 0.1 0.0-0.3 10^3/uL Basophils # (Auto) 0.0 0.0-0.1 10^3/uL OB - Assessment/Plan/Diagnosis Assessment Assessment: section Admission Dx 28 yo @ 39.1 Previous GBS neg Admission Status: Inpatient Order (span 2 midnights) Reason for Inpatient Admission: Repeat Plan Plan: Section RAINE HOFF DO Nov 23, 2018 07:09
--- NOTE | 2018-11-23 07:13 | Discharge Inst-Women's Service ---
Discharge Inst-Women's Serv Depart Medication/Instructions New, Converted or Re-Newed RX: RX on Chart Consults/Follow Up Additional Follow Up: Yes Orders/Referrals Dr. Bocanegra in 7-10 days, Dr. Serrano in 6 weeks Activity Activity: Activity as Tolerated Driving Instructions: No Driving for 1 Week NO SMOKING: NO SMOKING Nothing Inside Vagina: No Douching, No [place], No Tampons Diet Discharge Diet: No Restrictions Symptoms to Report to : Bleeding Excessive, Pain Increased, Fever Over 101 Degrees F, Vaginal Bleeding Increase, Questions/Concerns For Any Problems or Questions: Contact Your Physician Skin/Wound Care Infection Signs and Symptoms: Increased Redness, Foul Odor of Wound, Increased Drainage, Skin Itchy or Has a Rash, Increased Swelling, Temperature Above 101 F Operative Area Clean and Dry: Keep Incision Clean/Dry Stitches/[place]/Dermabond: Dermabond, Care of Stitches Bathing Instructions: RAINE Valentino DO Nov 23, 2018 07:13
[2018-11-23] MEDS: LACTATED RINGERS 1,000 ML IV SCH ×2 (07:14→16:55)
[2018-11-23] MEDS ORDERED: ONDANSETRON 4 MG/2 ML (SDV) Z0FRAN IVP PRN ×2 (07:15→09:00)
[2018-11-23] MEDS ORDERED: TETANUS,DIPTH,PERTUSS P/F (BOOSTRIX) 0.5 ML VIAL IM SCH (07:15)
[2018-11-23] MEDS ORDERED: DOCU100C37 PO (07:15)
[2018-11-23] MEDS ORDERED: ACHD5005 PO (07:15)
[2018-11-23] MEDS ORDERED: IBUP-844 PO (07:15)
[2018-11-23] MEDS ORDERED: MEASLES,MUMPS,RUBELLA 1 EA INJ SC SCH (07:15)
[2018-11-23] MEDS ORDERED: ROPIVACAINE 5MG/ML 30ML VIAL ONE (07:33)
--- NOTE | 2018-11-23 08:23 | OPERATIVE REPORT ---
DATE OF SERVICE: PREOPERATIVE DIAGNOSES: 1. A 20-year-old G3, P2 at 39 weeks and 1 day gestation. 2. Previous section. POSTOPERATIVE DIAGNOSES: 1. A 20-year-old G3, P2 at 39 weeks and 1 day gestation. 2. Previous section. PROCEDURE: Repeat low transverse section. SURGEON: Jose E Hoff DO. ANESTHESIA: Spinal. ESTIMATED BLOOD LOSS: 600 mL. URINE OUTPUT: 75 mL clear at the end of the procedure. FLUIDS: 1500 mL Lactated Ringer's solution. FINDINGS: A live male infant weighing 7 pounds 15 ounces, Apgars of 7 and 9. Grossly normal appearing uterus, bilateral fallopian tubes and ovaries. INDICATIONS FOR PROCEDURE: This 20-year-old female is a patient who sought care with Dr. Serrano. She was consulted in my office around 35 weeks for repeat . We scheduled it at 39 weeks, anticipating a term delivery. Risk of procedure was reviewed with the patient in detail, which she was already familiar with including risk of bleeding, infection, damage to surrounding structures including, but not limited to bowel, bladder, ureter, kidney with possible need for reoperation, postoperative complications, postoperative recovery time. We discussed the risks of anesthesia and even and possible need for blood transfusion After everything was discussed with the patient in detail, consent was obtained and the patient was taken to the operating room. OPERATIVE REPORT IN DETAIL: Once in the operating room, spinal analgesia was found to be adequate. She was placed in the supine position with leftward tilt, prepped and draped in a normal sterile fashion. A timeout was performed and anesthesia was tested. I then made a Pfannenstiel skin incision to the previously existing scar using a knife and carried down to the underlying fascia using Bovie cautery. The fascial incision extended laterally using Bovie cautery. Superior aspect of the fascial incision was then grasped with Nubia clamps, tented up and dissected off the underlying rectus muscles. The inferior aspect of the fascial incision was then grasped with Nubia clamps, tented up and dissected off the underlying rectus muscle. Rectus muscle was then dissected down the midline using blunt and sharp dissection using Bunch scissors, which exposed the peritoneum, which I entered bluntly and extended using blunt traction. I then placed the Jl ring retractor in the peritoneal incision, which offered excellent lateral sidewall retraction. I then identified the lower uterine segment, which was found to be thinned out. I made a low transverse incision into the vesicouterine peritoneum and bluntly dissected off the lower uterine segment until membranes were visualized, at which point I extended the uterine incision laterally and superiorly using bandage scissors. Amniotomy was then performed using Allis clamp and clear fluid was noted. The was found in the vertex presentation. With gentle fundal pressure, the 's head was elevated out of the incision where it was delivered. The nares and oropharynx were bulb suctioned. Anterior and posterior shoulders were delivered after nuchal cord was reduced. The was then brought out of the operative field where the cord was doubly clamped and cut and handed off to waiting nurses in attendance. Cord blood was collected. The three vessel cord was intact. The placenta delivered spontaneously thereafter. IV Pitocin was initiated to facilitate uterine contraction. Uterine fundus was confirmed by manual massage. Uterus was then exteriorized and cleared of endometrial clots and debris. I then proceeded with closing the uterine incision using 0 Vicryl suture in a running locked fashion. Second layer of imbricating 0 Monocryl was placed with excellent hemostasis noted after doing this. I then placed the uterus back in the pelvis and copiously irrigated the pelvis using normal saline. Once again, there was no active bleeding noted from any of my dissection planes. I placed Interceed antiadhesive over my low transverse incision and I then proceeded with closing the peritoneum using 3-0 Vicryl suture in a running fashion. Rectus muscle was reapproximated using a 3-0 Vicryl suture in interrupted fashion. The fascia was reapproximated using 0 Vicryl suture in a running fashion. Subcutaneous tissue was reapproximated with 3-0 plain interrupted subcutaneous stitch and skin reapproximated using 4-0 Monocryl running subcuticular. Dermabond was applied to the incision and a sterile dressing with adhesive white tape. The patient tolerated the procedure well and was sent to recovery in stable condition. Lap and sponge counts were correct at the end of the procedure and the instrument counts were correct as well. Two grams of Ancef were given preoperatively for infection prophylaxis. Job ID: [id number] DocumentID: [id number] Dictated Date: 11/23/2018 07:54:50 Family Engagement Specialist Date: 11/23/2018 08:22:24 Dictated By: JOSE E HOFF DO
[2018-11-23] MEDS ORDERED: HYDROmorphone 2 MG/ML VIAL (DILAUDID) IV ONE (09:00)
--- NOTE | 2018-11-23 09:30 | NUR ---
TRANSFERRED VIA BE TO PP ROOM 307 FROM OB PAR IN STABLE CONDITION ACC BY DONAL STRINGER AND GREER MIRZA RN AND IN OPEN CRIB. VSS. ORIENTED TO SURROUNDINGS, CALL LIGHT OPERATION, ROOM SERVICE PROCEDURE WITH STATED UNDERSTANDING. SIDE RAILS UP X2. CALL LIGHT PLACED WITHIN REACH. FF U/2. VAG FLOW LT/MOD RUBRA. CALF SCDS ON BILATERALLY. ABD DRSG D/I. FAMILY AT BEDSIDE.
[2018-11-23 09:40] VITALS: BP 106/78
--- NOTE | 2018-11-23 10:00 | NUR ---
FF U/2. VAG FLOW LT/MOD RUBRA. COLOR PINK. SKIN W/D. RESP. EASY. FAMILY AT BEDSIDE.
[2018-11-23] MEDS: KETOROLAC 30 MG/ML VIAL IV SCH ×3 (10:37→23:39)
[2018-11-23] MEDS: HYDROcodone/APAP 5 MG/325 MG (LORTAB) TAB PO PRN ×3 (10:42→23:03)
--- NOTE | 2018-11-23 10:42 | NUR ---
LORTAB 5MG/325 2 TABS P.O. FOR C/O ABD PAIN.
[2018-11-23] MEDS ORDERED: IBUPROFEN 600 MG (MOTRIN) TAB PO SCH (12:00)
--- NOTE | 2018-11-23 12:00 | NUR ---
VS REMAIN STABLE. FF U/1. VAG FLOW LT RUBRA. DENIES URGE TO VOID. STATES TINGLING IN LEGS. MOVING LEGS MORE.
[2018-11-23 12:15] VITALS: BP 118/73
[2018-11-23] MEDS ORDERED: CATHETER FLUSH 10 ML SYR IV SCH (14:00)
--- NOTE | 2018-11-23 15:00 | NUR ---
UP TO THE BATHROOM WITH ASSISTANCE. VOIDED 275 CC MARÍA URINE. PERICARE PERFORMED WITH PAD/UNDERWEAR APPLIED. AMBULATED BACK TO BED WITHOUT PROBLEMS. ABLE TO BEAR WEIGHT WELL.
[2018-11-23 15:15] VITALS: BP 128/74
--- NOTE | 2018-11-23 16:50 | NUR ---
LORTAB 2 TABS P.O. FOR C/O ABD PAIN. FAMILY AT BEDSIDE.CARING FOR INFANT IN ROOM. GOOD INTERACTION NOTED.
--- NOTE | 2018-11-23 17:40 | NUR ---
STATES FEELING BETTER SINCE PAIN MEDS.
--- NOTE | 2018-11-23 19:45 | NUR ---
REPORT RECEIVED AND CARES RESUMED BY THIS NURSE.
[2018-11-23 21:00] VITALS: BP 119/64
--- NOTE | 2018-11-23 21:00 | NUR ---
COMPLETE SHIFT ASSESSMENT DONE. PT REQUESTS PAIN MEDS SOON SHE CAN HAVE THEM. DENIES ANY FURTHER NEEDS OR C/O'S.
[2018-11-23] MEDS: DOCUSATE SODIUM 100 MG (COLACE) CAP PO SCH (21:03)
--- NOTE | 2018-11-23 22:40 | NUR ---
INFANT TO MOM'S ROOM AT THIS TIME.
--- NOTE | 2018-11-23 23:00 | NUR ---
LORTAB 2 TAB ADMINISTERED FOR PAIN.
--- NOTE | 2018-11-23 23:30 | NUR ---
PT ASSISTED UP TO BATHROOM. VOIDED WITHOUT DIFFICULTY. REPORTS PAIN IS NOT RELIEVED. TORADOL TO BE GIVEN.
[2018-11-24 01:00] VITALS: BP 114/68
--- NOTE | 2018-11-24 01:00 | NUR ---
PT UP TO BATHROOM. VOIDED WITHOUT DIFFICULTY. IV TO SALINE LOCK AT THIS TIME.
--- NOTE | 2018-11-24 01:30 | NUR ---
PT SITTING UP IN BED HOLDING . DENIES ANY NEEDS. REPORTS PAIN CONTROLLED AT THIS TIME.
[2018-11-24 04:30] VITALS: BP 118/74
--- NOTE | 2018-11-24 05:45 | NUR ---
LAB IN ROOM COLLECTING AM LABS.
[2018-11-24] MEDS: IBUPROFEN 600 MG (MOTRIN) TAB PO SCH ×3 (05:55→18:05)
--- NOTE | 2018-11-24 05:55 | NUR ---
IV REMOVED. PAIN MEDS ADMINISTERED. ABD DRESSING REMOVED.
[2018-11-24] MEDS: HYDROcodone/APAP 5 MG/325 MG (LORTAB) TAB PO PRN ×3 (05:56→20:32)
[2018-11-24 06:11] LABS: BASOPHILS % (AUTO) 0 % (0-10); EOSINOPHILS # (AUTO) 0.1 10^3/uL (0.0-0.3); EOSINOPHILS % (AUTO) 1 % (0-10); HEMATOCRIT 33 % (35-52); HEMOGLOBIN 10.6 G/DL (11.5-16.0); LYMPHOCYTES # (AUTO) 2.4 X 10^3 (1.0-4.0); LYMPHOCYTES % (AUTO) 19 % (12-44); MEAN CORPUSCULAR HEMOGLOBIN 28 PG (25-34); MEAN CORPUSCULAR HGB CONC 32 G/DL (32-36); MEAN CORPUSCULAR VOLUME 89 FL (80-99); MEAN PLATELET VOLUME 10.5 FL (7.4-10.4); MONOCYTES # (AUTO) 0.9 X 10^3 (0.0-1.0); MONOCYTES % (AUTO) 7 % (0-12); NEUTROPHILS # (AUTO) 9.3 X 10^3 (1.8-7.8); NEUTROPHILS % (AUTO) 73 % (42-75); PLATELET COUNT 217 10^3/uL (130-400); RED CELL DISTRIBUTION WIDTH 13.3 % (10.0-14.5); WHITE BLOOD COUNT 12.8 10^3/uL (4.3-11.0)
[2018-11-24 08:00] VITALS: BP 114/71
--- NOTE | 2018-11-24 08:00 | NUR ---
A.M. ASSESSMENT COMPLETED. VSS. IN NURSERY.
--- NOTE | 2018-11-24 08:01 | Postpartum Progress Note ---
Note Note Day # 1 Subjective: Patient is without complaints. Ambulating, voiding. Tolerating a regular diet without nausea or vomiting. Normal lochia. Pain is well controlled with oral pain medications. Objective: Physical Exam: General - Alert and oriented, no apparent distress Abdomen - Soft, appropriately tender to palpation, non-distended, fundus firm at umbilicus Extremities - no edema, negative Mega's bilaterally Incision- c/d/i Assessment: POD 1 RLTCS Acute blood loss anemia Plan: Routine care. Encourage breast feeding. Encourage ambulation. Ferrous sulfate supplementation. Plan for discharge tomorrow Vitals - Labs Vital Signs - I&O Vital Signs Date Time Temp Pulse Resp B/P (MAP) Pulse Ox O2 Delivery O2 Flow Rate FiO2 11/24/18 04:30 98.8 83 18 118/74 (89) 100 Room Air 11/24/18 01:00 98.3 91 18 114/68 (83) 98 Room Air 11/23/18 21:00 98.0 97 18 119/64 (82) 97 Room Air 11/23/18 15:15 99.2 80 18 128/74 (92) 98 Room Air 11/23/18 12:15 98.5 94 18 118/73 (88) 99 Room Air 11/23/18 09:40 97.8 89 18 106/78 (87) 99 Room Air 11/23/18 09:16 97.6 18 100 Room Air 11/23/18 09:01 97.8 18 99 Room Air 11/23/18 08:46 97.6 16 100 Room Air 11/23/18 08:31 97.6 16 100 Room Air 11/23/18 08:16 97.6 16 96 Room Air I & O 11/24/18 07:00 Intake Total 4500 ml Output Total 3365 ml Balance 1135 ml Labs Laboratory Tests 11/24/18 05:50: White Blood Count 12.8H, Red Blood Count 3.74L, Hemoglobin 10.6L, Hematocrit 33L , Mean Corpuscular Volume 89, Mean Corpuscular Hemoglobin 28, Mean Corpuscular Hemoglobin Concent 32, Red Cell Distribution Width 13.3, Platelet Count 217, Mean Platelet Volume 10.5H, Neutrophils (%) (Auto) 73, Lymphocytes (%) (Auto) 19 , Monocytes (%) (Auto) 7, Eosinophils (%) (Auto) 1, Basophils (%) (Auto) 0, Neutrophils # (Auto) 9.3H, Lymphocytes # (Auto) 2.4, Monocytes # (Auto) 0.9, Eosinophils # (Auto) 0.1, Basophils # (Auto) 0.0 RAINE HOFF DO Nov 24, 2018 08:01
[2018-11-24] MEDS: DOCUSATE SODIUM 100 MG (COLACE) CAP PO SCH ×3 (08:16→20:32)
--- NOTE | 2018-11-24 09:44 | Anesthesia-Regional Post-Op ---
Regional Patient Condition Mental Status: Alert, Oriented x3 Circulation: Same as Pre-Op Headache: Absent Sensation: Full Recovery Motor Block: Absent Post Op Complications Complications None Follow Up Care/Instructions Patient Instructions None needed. Anesthesia/Patient Condition Patient is doing well, no complaints, stable vital signs, no apparent adverse anesthesia problems. No complications reported per nursing. D/C home per [facility] Criteria: Yes SAJI CALLE CRNA Nov 24, 2018 09:44
--- NOTE | 2018-11-24 10:00 | NUR ---
CARING FOR INFANT IN ROOM. GOOD INTERACTION NOTED.
[2018-11-24 12:00] VITALS: BP 129/70
--- NOTE | 2018-11-24 12:00 | NUR ---
VSS. PT DOING WELL. AMBULATING WITHOUT DIFFICULTY.
--- NOTE | 2018-11-24 14:23 | NUR ---
HOLDING IN BED. FINISHED STORK MEAL. C/O GAS DISCOMFORT AND NEED FOR PAIN MEDICATION.
[2018-11-24] MEDS ORDERED: SIMETHICONE 80 MG (MYLICON) CHEW PO PRN (14:30)
[2018-11-24 16:30] VITALS: BP 120/71
--- NOTE | 2018-11-24 16:30 | NUR ---
RESTING IN BED WITH . VSS.
--- NOTE | 2018-11-24 18:00 | NUR ---
RHOGAM 1 VIAL GIVEN IM IN RIGHT VG SITE. SITE CLEAR.
[2018-11-24 21:17] VITALS: BP 116/69
[2018-11-25 01:07] VITALS: BP 104/55
[2018-11-25] MEDS: IBUPROFEN 600 MG (MOTRIN) TAB PO SCH ×2 (01:07→08:17)
[2018-11-25 08:05] VITALS: BP 113/69
--- NOTE | 2018-11-25 08:10 | NUR ---
A.M. ASSESSMENT COMPLETED. VSS. CARING FOR IN ROOM.
[2018-11-25] MEDS: HYDROcodone/APAP 5 MG/325 MG (LORTAB) TAB PO PRN (08:16)
[2018-11-25] MEDS: DOCUSATE SODIUM 100 MG (COLACE) CAP PO SCH (08:16)
--- NOTE | 2018-11-25 08:20 | NUR ---
DR. HOFF IN TO SEE PT. PLAN FOR DISCHARGE TODAY.
--- NOTE | 2018-11-25 08:35 | Postpartum Progress Note ---
Note Note Day # 2 Subjective: Patient is without complaints. Ambulating, voiding. Tolerating a regular diet without nausea or vomiting. Normal lochia. Pain is well controlled with oral pain medications. Objective: Physical Exam: General - Alert and oriented, no apparent distress Abdomen - Soft, appropriately tender to palpation, non-distended, fundus firm at umbilicus Extremities - no edema, negative Mega's bilaterally Incision- c/d/i Assessment: POD 2 RLTCS Plan: Routine care. Encourage breast feeding. Encourage ambulation. Ferrous sulfate supplementation. Plan for discharge today Vitals - Labs Vital Signs - I&O Vital Signs Date Time Temp Pulse Resp B/P (MAP) Pulse Ox O2 Delivery O2 Flow Rate FiO2 11/25/18 08:05 98.5 82 18 113/69 (84) 98 Room Air 11/25/18 01:07 98.4 72 18 104/55 (71) 98 Room Air 11/24/18 21:17 98.5 68 18 116/69 (85) 98 Room Air 11/24/18 16:30 98.2 79 18 120/71 (87) 98 Room Air 11/24/18 12:00 97.8 101 18 129/70 (89) 97 Room Air I & O 11/25/18 07:00 Intake Total 2280 ml Output Total 3525 ml Balance -1245 ml RAINE HOFF DO Nov 25, 2018 08:35
--- NOTE | 2018-11-25 12:00 | NUR ---
[facility] CARE DEMONSTRATED TO PT WITH STATED UNDERSTANDING.
[2018-11-25 12:30] VITALS: BP 113/69
--- NOTE | 2018-11-25 12:30 | NUR ---
DISCHARGE INSTRUCTIONS REVIEWED WITH PT AND COPY GIVEN. STATES UNDERSTANDING OF ALL INSTRUCTIONS AND NEED TO F/U SCHEDULED AND NEEDED. RXS GIVEN.
--- NOTE | 2018-11-25 12:30 | NUR ---
DISMISSED VIA WS FROM WS WITH INFANT TO FAMILY CAR IN STABLE CONDITION ACC BY SPOUSE AND RUY STRINGER.
--- NOTE | 2018-11-27 12:05 | Physician Query-Final Dx ---
Final Diagnosis Give Final Diagnosis Please give Final Diagnosis CRISTI NIELSEN Nov 27, 2018 12:05
== END 2018-11-25 12:30 | disposition home or self-care (01) | DRG 788 ==
LOC: LDRP 06:00
PROVIDERS: ADMIT Obstetrics & Gynecology; ATTEND Obstetrics & Gynecology
PROC: 10D00Z1 Extraction of Products of Conception, Low, Open Approach (ICD-10-PCS; principal; 2018-11-23 07:10)
DX: O34.211 Maternal care for low transverse scar from previous cesarean delivery (principal); O69.81X0 Labor and delivery complicated by cord around neck, without compression, not applicable or unspecified; Z3A.39 39 weeks gestation of pregnancy; Z37.0 Single live birth
CPT/HCPCS: 36415; 83033; 85025; 86850; 86900; 86901